=== PATIENT | male | born 1955 | race Two or more races ===

== ENCOUNTER 2022-03-21 18:52 | Inpatient (IN) | payer OTHER ==
[~2022-03-21] VITALS: Ht 167.6 cm; Wt 99.8 kg
--- NOTE | 2022-03-21 20:05 | NUR ---
SE RECIBE PT MASCULINO DE 66 ANOS ALERTA Y ORIENTADO X3 QUIEN REFEIRE DIFICULTAD PARA RESPIRAR. SE MONITOREAN S/V Y PT OBTIENE SPO2 EN 92%. SE UBICA PTE EN A/U.
--- NOTE | 2022-03-21 21:10 | NUR ---
SE ORIENTA AL PACIENTE SOBRE EL TX. SE EXTRAEN MUESTRAS DE JEANE BAJO MEDIDAS ASEPTICAS SE ROTULAN Y ENVIAN AL LABORATORIO. SE CANALIZA Y ADMINISTRAN MEDICAMENTOS AQUILES ORDEN MEDICA. SE NOTIFICAN TERAPIAS Y ABGS
== END 2022-03-28 21:12 | disposition home or self-care (01) | DRG 191 ==
LOC: ER 18:52 → MEDI 03-22 05:25 → SEC-K 03-22 06:51 → MEDJ 03-22 06:53 → SEC-K 03-22 06:55 → MEDI 03-22 07:57
PROVIDERS: ADMIT Internal Medicine; ATTEND Internal Medicine
PROC: 5A0955A Assistance with Respiratory Ventilation, Greater than 96 Consecutive Hours, High Flow/Velocity Cannula (ICD-10-PCS; principal; 2022-03-21)
PROC: BW24ZZZ Computerized Tomography (CT Scan) of Chest and Abdomen (ICD-10-PCS; 2022-03-21)
PROC: 4A12X45 Monitoring of Cardiac Electrical Activity, Ambulatory, External Approach (ICD-10-PCS; 2022-03-22)
PROC: B54DZZZ Ultrasonography of Bilateral Lower Extremity Veins (ICD-10-PCS; 2022-03-22)
PROC: BW2410Z Computerized Tomography (CT Scan) of Chest and Abdomen using Low Osmolar Contrast, Unenhanced and Enhanced (ICD-10-PCS; 2022-03-22)
DX: J44.1 Chronic obstructive pulmonary disease with (acute) exacerbation (principal); F10.29 Alcohol dependence with unspecified alcohol-induced disorder; U07.0 Vaping-related disorder; F17.208 Nicotine dependence, unspecified, with other nicotine-induced disorders; K70.9 Alcoholic liver disease, unspecified; D72.829 Elevated white blood cell count, unspecified; K13.3 Hairy leukoplakia

== ENCOUNTER 2022-04-22 21:44 | Inpatient (IN) | payer OTHER ==
[~2022-04-22] VITALS: Ht 175.3 cm; Wt 75.7 kg
== END 2022-04-29 17:52 | disposition home or self-care (01) | DRG 191 ==
LOC: ER 21:44 → MEDI 04-23 18:26
PROVIDERS: ADMIT Internal Medicine; ATTEND Internal Medicine
PROC: 3E0F7SF Introduction of Other Gas into Respiratory Tract, Via Natural or Artificial Opening (ICD-10-PCS; principal; 2022-04-23)
PROC: BB2 Imaging, Respiratory System, Computerized Tomography (CT Scan) (ICD-10-PCS; 2022-04-26)
PROC: BW2110Z Computerized Tomography (CT Scan) of Abdomen and Pelvis using Low Osmolar Contrast, Unenhanced and Enhanced (ICD-10-PCS; 2022-04-28)
DX: J44.1 Chronic obstructive pulmonary disease with (acute) exacerbation (principal); E87.1 Hypo-osmolality and hyponatremia; C22.0 Liver cell carcinoma; U07.0 Vaping-related disorder; K76.9 Liver disease, unspecified; Z71.51 Drug abuse counseling and surveillance of drug abuser; F17.290 Nicotine dependence, other tobacco product, uncomplicated; F10.20 Alcohol dependence, uncomplicated; F12.20 Cannabis dependence, uncomplicated